=== PATIENT | female | born 1985 | race Two or more races ===

== ENCOUNTER 2016-12-02 20:51 | Emergency (ER) | payer MEDICAID ==
[~2016-12-02] VITALS: Ht 157.5 cm; Wt 63.5 kg
[2016-12-02 20:55] VITALS: BP 117/74
[2016-12-02] MEDS ORDERED: LIDOCAINE 2%-EPI 1:100,000 30 ML VIAL TP ONE (21:30)
== END 2016-12-02 22:16 | disposition home or self-care (01) ==
LOC: ER 20:56
DX: S71.112A Laceration without foreign body, left thigh, initial encounter (principal); F41.9 Anxiety disorder, unspecified; X78.1XXA Intentional self-harm by knife, initial encounter; Y93.89 Activity, other specified; Y92.89 Other specified places as the place of occurrence of the external cause; Y99.8 Other external cause status
CPT/HCPCS: 12002; 99283; A4217; A4606; Z7610

== ENCOUNTER 2016-12-03 09:42 | Emergency (ER) | payer MEDICAID ==
[~2016-12-03] VITALS: Ht 152.4 cm; Wt 75.3 kg
[2016-12-03 09:42] VITALS: BP 124/68
[2016-12-03] MEDS ORDERED: LIDOCAINE 2%-EPI 1:100,000 30 ML VIAL ONE (10:22)
== END 2016-12-03 15:52 | disposition home or self-care (01) ==
LOC: ER 09:43
DX: S71.112A Laceration without foreign body, left thigh, initial encounter (principal); F41.9 Anxiety disorder, unspecified; X78.1XXA Intentional self-harm by knife, initial encounter; Y93.89 Activity, other specified; Y92.89 Other specified places as the place of occurrence of the external cause; Y99.8 Other external cause status
CPT/HCPCS: A4606; A6402; J3490; Z7610

== ENCOUNTER 2016-12-04 10:53 | Emergency (ER) | payer MEDICAID ==
[~2016-12-04] VITALS: Ht 152.4 cm; Wt 61.2 kg
[2016-12-04 10:53] VITALS: BP 107/72
== END 2016-12-04 11:29 | disposition home or self-care (01) ==
LOC: ER 10:54
DX: S71.112D Laceration without foreign body, left thigh, subsequent encounter (principal); M79.605 Pain in left leg; F41.9 Anxiety disorder, unspecified
CPT/HCPCS: A4606; Z7610

== ENCOUNTER 2016-12-09 11:21 | Emergency (ER) | payer MEDICAID ==
[~2016-12-09] VITALS: Ht 157.5 cm; Wt 63.5 kg
[2016-12-09 11:42] VITALS: BP 116/78
== END 2016-12-09 12:13 | disposition home or self-care (01) ==
LOC: ER 11:24
DX: S71.112D Laceration without foreign body, left thigh, subsequent encounter (principal); F41.9 Anxiety disorder, unspecified
CPT/HCPCS: 99283; A4606; A6402; Z7610

== ENCOUNTER 2016-12-10 09:27 | Emergency (ER) | payer MEDICAID ==
[~2016-12-10] VITALS: Ht 157.5 cm; Wt 63.5 kg
[2016-12-10 09:35] VITALS: BP 108/74
[2016-12-10] MEDS ORDERED: LIDOCAINE 1%-EPI 1:100,000 20 ML VIAL ONE (09:35)
[2016-12-10] MEDS ORDERED: LIDOCAINE 1%-EPI 1:100,000 50 ML VIAL IJ ONE (10:00)
== END 2016-12-10 10:28 | disposition home or self-care (01) ==
LOC: ER 09:30
DX: S81.812A Laceration without foreign body, left lower leg, initial encounter (principal); F41.9 Anxiety disorder, unspecified; F17.210 Nicotine dependence, cigarettes, uncomplicated; Z88.0 Allergy status to penicillin; X78.1XXA Intentional self-harm by knife, initial encounter; Y93.89 Activity, other specified; Y92.89 Other specified places as the place of occurrence of the external cause; Y99.8 Other external cause status
CPT/HCPCS: 12004; 99283; A4606; A6402; J3490 ×2; Z7610

== ENCOUNTER 2017-04-13 03:44 | Emergency (ER) | payer MEDICAID ==
[~2017-04-13] VITALS: Ht 157.5 cm; Wt 68.0 kg
[2017-04-13 04:44] VITALS: BP 118/74
[2017-04-13] MEDS ORDERED: IBUPROFEN 400 MG TABLET ONE (04:48)
--- NOTE | 2017-04-13 05:09 | NUR ---
DR. GUTIÉRREZ AT BEDSIDE FOR EVAL.
[2017-04-13] MEDS ORDERED: DEXAMETHASONE SOD PHOSPHATE 10 MG/ML VIAL ONE (05:11)
[2017-04-13] MEDS ORDERED: IBUPROFEN 400 MG TABLET PO ONE (05:30)
[2017-04-13] MEDS ORDERED: DEXAMETHASONE SOD PHOSPHATE 4 MG/ML VIAL IV ONE (05:30)
== END 2017-04-13 05:17 | disposition home or self-care (01) ==
LOC: ER 03:44
DX: J06.9 Acute upper respiratory infection, unspecified (principal); F41.9 Anxiety disorder, unspecified; F17.200 Nicotine dependence, unspecified, uncomplicated; Z88.0 Allergy status to penicillin
CPT/HCPCS: 99283; A4606; J1100; Z7610